=== PATIENT | male | born 2000 | race Caucasian/White ===

== ENCOUNTER 2018-02-11 08:18 | Inpatient (IN) | payer MEDICAID ==
[~2018-02-11] VITALS: Ht 170.2 cm; Wt 77.2 kg
[~2018-02-11 08:18] MED LIST: DSS100 PO; HYDR-309 PO
[2018-02-11 09:05] LABS: BASOPHILS % (AUTO) 0.7 % (0.0-2.0); EOSINOPHILS % (AUTO) 0.4 % (1.0-6.0); HEMATOCRIT 44.8 % (41-53); HEMOGLOBIN 15.2 g/dL (13.5-17.5); LYMPHOCYTES # (AUTO) 1.4 K/uL (1.0-4.8); LYMPHOCYTES % (AUTO) 19.3 % (22.0-44.0); MEAN CORPUSCULAR HGB CONC 34.1 G/dL (31.0-37.0); MEAN CORPUSCULAR VOLUME 94 fL (80-100); MONOCYTES # (AUTO) 0.5 K/uL (0.1-1.0); MONOCYTES % (AUTO) 6.4 % (2.0-9.0); NEUTROPHILS # (AUTO) 5.4 K/uL (1.8-7.7); NEUTROPHILS % (AUTO) 73.2 % (40.0-70.0); PLATELET COUNT (AUTO) 259 K/uL (150-450); RED BLOOD CELL COUNT(AUTO) 4.76 MIL/uL (4.50-5.90); RED CELL DISTRIBUTION WIDTH 12.3 % (11.5-14.5)
[2018-02-11 09:19] LABS: ANION GAP 8 mmol/L (8-16); CALCIUM, TOTAL 9.3 mg/dL (8.8-10.5); CARBON DIOXIDE 30 mmol/L (22-29); CHLORIDE 104 mmol/L (98-107); CREATININE 0.93 mg/dL (0.60-1.30); GLOMERULAR FILTR. RATE CALC > 60 mL/min (>60); GLUCOSE,RANDOM 96 mg/dL (70-110); POTASSIUM 3.6 mmol/L (3.5-5.1); SODIUM SERUM 142 mmol/L (136-145); UREA NITROGEN, BLOOD 10 mg/dL (7-18)
[2018-02-11 09:26] LABS: ALANINE AMINOTRANSFERASE 18 U/L (12-78); ALBUMIN 4.2 g/dL (3.4-5.0); ALKALINE PHOSPHATASE 77 U/L (46-116); ASPARTATE AMINOTRANSFERASE 16 U/L (15-37); BILIRUBIN,TOTAL 0.9 mg/dL (0.1-1.0); TOTAL PROTEIN, SERUM 7.7 g/dL (6.4-8.2)
[2018-02-11] MEDS ORDERED: ZOLPIDEM TARTRATE 10 MG TABLET PO PRN (10:45)
[2018-02-11] MEDS ORDERED: LORazepam 2 MG TABLET PO PRN (10:45)
[2018-02-11] MEDS ORDERED: HALOPERIDOL 5 MG TABLET PO PRN (10:45)
[2018-02-11] MEDS ORDERED: HALOPERIDOL 5 MG TABLET PO ONE (11:00)
[2018-02-11] MEDS ORDERED: LORazepam 2 MG TABLET PO ONE (11:00)
[2018-02-11 11:24] LABS: AMPHET/METH SCREEN,URINE NEGATIVE (NEGATIVE); BARBITURATE SCREEN, URINE NEGATIVE (NEGATIVE); BENZODIAZEPINES SCREEN,URINE NEGATIVE (NEGATIVE); CANNABINOID SCREEN,URINE POSITIVE (NEGATIVE); COCAINE SCREEN,URINE NEGATIVE (NEGATIVE); METHADONE SCREEN, URINE NEGATIVE (NEGATIVE); PHENCYCLIDINE SCREEN,URINE NEGATIVE (NEGATIVE)
[2018-02-11 11:25] LABS: OPIATE SCREEN,URINE NEGATIVE (NEGATIVE)
[2018-02-11 12:30] LABS: APPEARANCE,URINE TURBID (CLEAR); BILIRUBIN,URINE NEGATIVE (NEGATIVE); GLUCOSE, URINE (UA) NEGATIVE (NEGATIVE); KETONES,URINE NEGATIVE (NEGATIVE); LEUKOCYTE ESTERASE ,URINE NEGATIVE (NEGATIVE); NITRATE,URINE NEGATIVE (NEGATIVE); OCCULT BLOOD,URINE NEGATIVE (NEGATIVE); PROTEIN,URINE TRACE (NEGATIVE); UROBILINOGEN,URINE 0.2 mg/dL (<=1.0)
[2018-02-11 12:37] VITALS: BP 128/81
[2018-02-11] MEDS ORDERED: INFLUENZA VIRUS VACCINE QVS 2017-18 (3YR+)/PF 60 MCG/0.5 ML SYRINGE IM ONE (15:45)
[2018-02-11 16:54] VITALS: BP 123/67
[2018-02-11] MEDS: RisperiDONE 1 MG TABLET PO SCH (20:38)
[2018-02-12 07:15] VITALS: BP 126/67
[2018-02-12] MEDS: SERTRALINE HCL 50 MG TABLET PO SCH (08:30)
[2018-02-12 08:52] VITALS: BP 122/77
[2018-02-12 16:29] VITALS: BP 129/76
[2018-02-12] MEDS: RisperiDONE 1 MG TABLET PO SCH (20:17)
[2018-02-13 01:03] VITALS: BP 113/61
[2018-02-13] MEDS: SERTRALINE HCL 50 MG TABLET PO SCH (08:21)
[2018-02-13 08:27] LABS: CHOL/HDL RATIO 2.7 (4.2-7.3)
[2018-02-13 08:39] VITALS: BP 121/78
[2018-02-13] MEDS ORDERED: SERT50TA12 PO (13:35)
[2018-02-13] MEDS ORDERED: RISP1 PO (13:35)
== END 2018-02-13 14:50 | disposition home or self-care (01) | DRG 750 ==
LOC: EMS 08:18 → AHU 11:23 → B2S 14:48
PROVIDERS: ATTEND Psychiatry & Neurology Child & Adolescent Psychiatry
DX: F25.9 Schizoaffective disorder, unspecified (principal); R45.851 Suicidal ideations; F32.9 Major depressive disorder, single episode, unspecified; E87.6 Hypokalemia; F12.90 Cannabis use, unspecified, uncomplicated; Z79.899 Other long term (current) drug therapy
CPT/HCPCS: G0480